=== PATIENT | male | born 1940 | race Caucasian/White ===

== ENCOUNTER 2019-12-15 09:00 | Outpatient (RCR) | payer MEDICARE, SELFPAY | END 2019-12-15 11:00 | disposition home or self-care (01) | LOC: PT.CARL 09:00 | PROVIDERS: Visit Provider Nurse Practitioner Family | DX: M70.61 Trochanteric bursitis, right hip (principal) | CPT/HCPCS: 97033; 97035; 97110; 97140; 97163; 97164 ==

== ENCOUNTER 2022-03-13 21:31 | Inpatient (IN) | payer MEDICARE, SELFPAY ==
[2022-03-13] VITALS (7 sets, daily range): BP systolic 92–108; BP diastolic 62–68; PULSE 78–92; RESP 12–25; O2SAT 94–96; BMI 21.2
--- NOTE | 2022-03-13 21:38 | PC.NURSE ---
Pt arrived to floor via stretcher from [facility] @ [id number].
--- NOTE | 2022-03-13 21:49 | PC.NURSE ---
pt arrived via ambulance, pt placed on bipap at this time, kristine greene at bedside assessing pt, provider also talking with family at this time, b/p was read 78 systolic initially, cuff size changed and b/p remains stable at this time. pt is alert and oriented x4, lung sounds clear and diminished, skin fragile and wrinkled and without edema.
--- NOTE | 2022-03-13 22:10 | XR_ITS ---
PROCEDURE INFORMATION: Exam: XR Chest Exam date and time: 03/13/2022 10:19 PM Age: 82 years old Clinical indication: Condition or disease; Lung condition and disease; Hypoxia TECHNIQUE: Imaging protocol: Radiologic exam of the chest. Views: 1 view. COMPARISON: No relevant prior studies available. FINDINGS: Lungs: Low lung volumes. Pulmonary vasculature grossly normal. Peripheral interstitial changes bilaterally suggesting interstitial fibrosis, with moderate bilateral basilar alveolar opacities and additional mild peripheral alveolar opacities in the mid to upper lung bunch. This could represent changes of chronic interstitial fibrosis with non infectious alveolitis although can not exclude superimposed elements of acute pulmonary edema or multifocal pneumonia radiographically. Pleural spaces: No gross pleural effusion. No pneumothorax. Skin fold projects over the upper left lung. Heart/Mediastinum: Mild cardiomegaly. No tracheal/mediastinal shift. Diaphragm: Elevated right hemidiaphragm. Bones/joints: No acute osseous abnormalities are identified. Osteopenia. IMPRESSION: 1. Moderate pulmonary fibrosis. 2. Bilateral alveolar opacities, predominantly basilar, which could represent atelectasis and scarring versus multifocal pneumonia or edema, or possibly non infectious alveolitis secondary to interstitial lung disease.
[2022-03-13 22:46] LABS: Adenovirus,PCR Not Detected (NotDetected); Bordetella Pertussis Not Detected (NotDetected); Chlamydophila Pneumoniae, PCR Not Detected (NotDetected); Coronavirus 19, PCR Not Detected (NotDetected); Coronavirus 229E Not Detected (NotDetected); Coronavirus NL63 Not Detected (NotDetected); Coronavirus OC43 Not Detected (NotDetected); Coronovirus HKU1,PCR Not Detected (NotDetected); Human Metapneumovirus Not Detected (NotDetected); Influenza A, PCR Not Detected (NotDetected); Influenza AH1, 2009 Not Detected (NotDetected); Influenza AH1, PCR Not Detected (NotDetected); Influenza AH3,PCR Not Detected (NotDetected); Influenza B, PCR Not Detected (NotDetected); Mycoplasma Pneumoniae, PCR Not Detected (NotDetected); Parainfluenza 1, PCR Not Detected (NotDetected); Parainfluenza 2, PCR Not Detected (NotDetected); Parainfluenza 3, PCR Not Detected (NotDetected); Parainfluenza 4, PCR Not Detected (NotDetected); Respiratory Syncytial Virus Not Detected (NotDetected); Rhinovirus/Enterovirus Not Detected (NotDetected)
[2022-03-13 22:58] LABS: Chloride 105 mmol/L (98-107); Potassium 4.4 mmoL/L (3.5-5.1); Sodium 134 mmol/L (136-145)
[2022-03-13 23:01] LABS: Albumin Level 2.7 g/dl (3.5-5.0); Albumin/Globulin Ratio 0.9 (1.1-1.8); Alkaline Phosphatase 177 U/L (38-126); Anion Gap 16.4 mEq/L (5-15); Bilirubin,Total 2.2 mg/dl (0.2-1.3); Blood Urea Nitrogen 29 mg/dl (9-20); Calcium 7.5 mg/dl (8.4-10.2); Carbon Dioxide 17 mmol/L (22.0-30.0); Creatinine Clearance Estimated 30 mL/min (50-200); Estimated Glomerular Filt Rate 41 ml/min (>60); GFR (African American) 50 ML/MIN (>60); Glucose 233 mg/dl (74-100); Total Protein,Serum 5.7 g/dl (6.3-8.2)
[2022-03-13 23:08] LABS: Alanine Aminotransferase 967 U/L (12-78)
[2022-03-13 23:10] LABS: Lactic Acid 3.2 mmol/L (0.7-2.1)
[2022-03-13 23:11] LABS: Basophils % 0.1 % (0.1-2.0); Eosinophils % 0.1 % (0.1-12.0); Hematocrit 43.1 % (42.0-52.0); Hemoglobin 13.6 g/dL (14.1-18.0); Lymphocytes # 0.5 K/mm3 (0.7-4.5); Lymphocytes % 3.4 % (10-50); Mean Corpuscular HGB Conc 31.7 g/dL (31.8-35.4); Mean Corpuscular Hemoglobin 30.4 pg (27.0-31.2); Monocytes # 0.3 K/mm3 (0.1-1.0); Neutrophils % 94.4 % (37.0-80.0); Platelet Count 173 K/mm3 (142-424); Red Blood Count 4.48 M/mm3 (4.60-6.20); Red Cell Distribution Width 15.5 % (11.5-17.5); White Blood Count 13.8 K/mm3 (4.8-10.8)
[2022-03-13 23:16] LABS: Troponin I 0.92 ng/ml (0.00-0.034)
[2022-03-13 23:20] LABS: MANUAL DIFFERENTIAL MANUAL DIFFERENTIAL (MANUAL DIFF)
--- NOTE | 2022-03-13 23:35 | ECG_ITS ---
APPROVED REPORT Exam: Resting ECG HR:78 bpm ECG Measurements Heart Rate 78 AXES NV 149 P 56 QRSd 92 QRS 52 QT 417 T -22 QTc 451 Conclusion SINUS RHYTHM INDETERMINATE AXIS POSSIBLE RIGHT VENTRICULAR CONDUCTION DELAY [RSR (QR) IN V1/V2] ST DEVIATION AND MODERATE T-WAVE ABNORMALITY, CONSIDER ANTEROLATERAL ISCHEMIA [-0.1+ mV T-WAVE IN V3-V6] ABNORMAL ECG UNCONFIRMED REPORT Electronically signed by : Charles Platt MD 03/14/2022 13:20:12
[2022-03-13 23:40] LABS: ABG Base Excess -7.9 mmol/L (-2.4-2.3); ABG HCO3 16.9 mmhg (22.0-26.0); ABG Oxygen Saturation 99 % (90-100); ABG PCO2 27.8 mmhg (35.0-45.0); ABG PO2 148.5 mmhg (80-100); ABG TCO2 17.8 mmhg (23-27); Allen's Test Acceptable; Oxygen 60 %; Pressure Support 6; Source Right Radial
[2022-03-13 23:51] LABS: Aspartate Amino Transferase 1480 U/L (17-59)
[2022-03-14] VITALS: BP 105/70; PULSE 79; RESP 22; O2SAT 89
[2022-03-14 00:03] LABS: Lymphocytes % 4 % (10-50); Monocytes % 1 % (2-9); Neutrophils % 95 % (42-76); Total Cells Counted 100
[2022-03-14 00:04] LABS: Platelet Estimate Normal; RBC Morphology Normal
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
[2022-03-14 01:00] VITALS: BP 93/50; PULSE 79; RESP 24; O2SAT 92
[2022-03-14 01:28] LABS: Procalcitonin 1.21 ng/mL (0.0-2.0)
[2022-03-14 01:35] LABS: Troponin I 1.05 ng/ml (0.00-0.034)
[2022-03-14 02:00] VITALS: BP 83/56; PULSE 82; RESP 24; O2SAT 92
[2022-03-14 02:11] LABS: Reflex Lactic Add Lactic Reflex
[2022-03-14 02:20] VITALS: BP 73/45; PULSE 85; RESP 30; O2SAT 95
--- NOTE | 2022-03-14 03:11 | PC.NURSE ---
0215 rt called to check bipap as pt was complaining of soa, noted pt breathing has increased, 02 sats 94%. Kimberlee greene called at this time to inform of pt increased soa and that rt was called to assess bipap, kimberlee was also notified of b/p 83/56 at this time, pr 82, spo2 92%, pt responsive and talking to at this time. 0219 kimberlee called regarding b/p 73/45, pt with increase in breathing, 02 sats 95%, hr 85, rt at bedside at this time, pts at bedside at this time. pt responsive at this time 0220 kimberlee at bedside to assess pt at this time, pt was noted with glossy eyes and pt appeared to be having seizure like activity and unresponsive. 0223 lay red called at this time, crash cart brought to room 0228 pt became pulseless, cpr began, code blue called 0230 epinephrine 1mg given, pulse check, pt with no pulse, pt in pea, cpr resumed 0232 pulse check. pt remains in pea, cpr resumed 0233 epinephrin 1mg given, calcium chloride 1amp given, sodium bicarb 1amp given at this time. glucose check 197, cpr in progress 0234 pulse check, pt remains in pea, dr abbott at bedside, pt intubated at this time, cpr resumed 0236 pulse check, pt remains in pea, epinephrin 1mg given, cpr resumed 0238 pulse check, pt remains in pea, epinephrin 1mg given per provider orders, cpr resumed 0240 pulse check, pt remains in pea, cpr resumed 0242 pulse check, pt remains in pea, 1 amp sodium bicarb given, cpr resumed 0243 epinephrine 1mg given 0244 pulse check, faint pulse was felt, cpr resumed, epinephrine drip ordered 0246 pulse check, pt in pea, epinephrine drip started, cpr continued 0248 pulse check, pt in pea, cpr continued 0250 pulse check, pt in pea, cpr continued, epinephrine drip infusing at 30mcg/min 0252 pulse check, pt remains in pea, cpr continued 0254 pulse check, pt remains in pea, cpr continued 0255 in room at this time, cpr stopped at this time, time of called at 0255
--- NOTE | 2022-03-14 03:18 | EXP.DEATH.NO ---
Pronouncement Note Date and Time of Date of : 03/14/22 Time of : 02:55 PCOD Preliminary cause of : Acute respiratory failure Contributing Factors (1) Acute on chronic respiratory failure with hypoxia: (2) HARITHA (acute kidney injury): (3) Transaminitis: (4) Severe sepsis: (5) CAD (coronary artery disease): (6) COPD (chronic obstructive pulmonary disease): (7) NSTEMI (non-ST elevated myocardial infarction): Summary Additional details: This is a 82-year-old male with past medical history of interstitial lung disease, pulmonary polyposis, CAD who was admitted from [facility] for acute on chronic respiratory failure, severe sepsis, NSTEMI, acute renal failure. On presentation to the hospital he was in mild respiratory distress that improved significantly with BiPAP placement. He was initially hypotensive at presentation at the outside hospital but had improvement in blood pressure after IV fluid administration. At the time of admission he was placed on broad-spectrum antibiotics for presumed pneumonia. He was treated with therapeutic Lovenox for presumed PE. IV fluids were administered for severe sepsis and HARITHA. EKG showed ST depression but no acute elevation noted with absence of chest pain. Shortly after admission to the hospital he was noted to be resting comfortably with family at bedside. He developed sudden onset of shortness of breath with respiratory distress and loss of pulses. Multiple rounds of high-quality CPR were administered with ACLS protocol. Intubation was successful by ED provider. Despite high-quality CPR and ACLS protocol, patient was unable to be resuscitated. was at bedside during resuscitative efforts and agreed with cessation of life-saving measures. Additional Data Confirmation of : no pulse and no respirations Family: at bedside Attending/PCP notified?: Yes Attending physician: Cameron Knox MD Was code activated?: Yes Autopsy requested?: No mobile paramedical examiner notified?: Yes
--- NOTE | 2022-03-14 03:22 | PC.NURSE ---
pt ruled out by NATAN, coordinator Celeste Richmond
--- NOTE | 2022-03-14 03:25 | EXP.DEATH.DS ---
Discharge Sum: Prov Provider Primary care physician: Michelle Henry Visit Care Team Role Provider Type Michelle Henry Primary Care Provider Referring Cameron Knox MD Admit Provider Staff Physician Attending Provider Admitting clinician: Cameron Knox Attending physician on admission: Cameron Knox Pronouncing clinician: Kimberlee Koroma APRN Discharge Sum: Diag PCOD Cause of : Respiratory arrest Contributing Factors (1) Acute on chronic respiratory failure with hypoxia: (2) HARITHA (acute kidney injury): (3) Transaminitis: (4) Severe sepsis: (5) CAD (coronary artery disease): (6) COPD (chronic obstructive pulmonary disease): (7) NSTEMI (non-ST elevated myocardial infarction): Discharge Sum: Summary Date and Time Date of admission: 03/13/22 21:31 Date of : 03/14/22 Time of : 02:55 Additional Data Confirmation of as documented by pronouncing clinician: no pulse Family: at bedside Attending/PCP notified?: Yes Attending physician: Cameron Knox MD
--- NOTE | 2022-03-14 03:51 | PC.NURSE ---
of family choice called at this time
--- NOTE | 2022-03-14 05:02 | PC.NURSE ---
post mortem care given at this time.
--- NOTE | 2022-03-14 05:35 | PC.NURSE ---
home here at this time
--- NOTE | 2022-03-14 05:37 | PC.NURSE ---
Pt off the floor with sukhi home @ [id number].
--- NOTE | 2022-03-15 07:25 | EXP.ACUTE.PN ---
Subjective *Date: 03/15/22 *Time: 07:25 Interval history: this is a brief note - pt with acute cardiac arrest - please see hosp note Medical Exam I & O for Labs for Last 24 Hours: Intake & Output 03/12/22 03/13/22 03/14/22 03/15/22 11:59 11:59 11:59 11:59 Output Total 0 / 0 Balance 0 / 0 Weight 135 lb 12.8 oz Head: Present normocephalic Eyes: Present other (nonresp) Comment:: no acute changes - dentures removed Neck: Present trachea midline Comment:: apnea Comment:: pea and active cpr GI: Present soft Skin: Present intact Comment:: nonresponsive Assessment and Plan *Assessment and plan (1) Cardiopulmonary arrest: Status: Acute Category: Medical Code(s): I46.9 - Cardiac arrest, cause unspecified Plan was asked to intubate pt - procedure note - pt was intubated with 7.5 et tube w/o diff at 24 at lip with color change confirmation plus auscultation and improved o2 sat
== END 2022-03-14 05:39 | disposition expired ==
PROVIDERS: Nurse Practitioner Acute Care; Admitting Provider Internal Medicine Adolescent Medicine; PCP Nurse Practitioner Family; Visit Provider Internal Medicine Adolescent Medicine
DX: I21.4 Non-ST elevation (NSTEMI) myocardial infarction (principal); A41.9 Sepsis, unspecified organism; J96.21 Acute and chronic respiratory failure with hypoxia; R65.20 Severe sepsis without septic shock; N17.9 Acute kidney failure, unspecified; I25.10 Atherosclerotic heart disease of native coronary artery without angina pectoris; J44.9 Chronic obstructive pulmonary disease, unspecified; I46.9 Cardiac arrest, cause unspecified; Z79.01 Long term (current) use of anticoagulants; Z87.891 Personal history of nicotine dependence; J84.10 Pulmonary fibrosis, unspecified
CPT/HCPCS: 31500; G0379; 36415; 71045; 80053; 82803; 83605; 84145; 84484; 85007; 85025; 87040; 87581; 87632; 87798; 93005; 94660; C9803; G0378; J0456; J3370; U0003; U0005